=== PATIENT | male | born 1940 | race Caucasian/White ===

== ENCOUNTER 2018-01-09 16:44 | Inpatient (IN) | payer OTHER ==
[~2018-01-09] VITALS: Ht 157.5 cm; Wt 69.0 kg
[2018-01-09] MEDS ORDERED: ADENOSINE 6 MG/2 ML ONE ×2 (17:04→18:39)
[2018-01-09 17:26] LABS: BASOPHILS # (AUTO) 0.03 x10^3/uL (0-0.1); BASOPHILS % (AUTO) 1 % (0-1); EOSINOPHILS # (AUTO) 0.41 x10^3/uL (0-0.4); EOSINOPHILS % (AUTO) 7 % (1-7); LYMPHOCYTES # (AUTO) 2.61 x10^3/uL (1-3.4); LYMPHOCYTES % (AUTO) 41 % (22-44); MD NO; MEAN CORPUSCULAR HEMOGLOBIN 36.3 pg (27.5-34.5); MEAN CORPUSCULAR HGB CONC 34.1 g/dL (33.2-36.2); MEAN CORPUSCULAR VOLUME 106.5 fL (81-97); MEAN PLATELET VOLUME 8.8 fL (7.4-10.4); MONOCYTES % (AUTO) 9 % (2-9); NEUTROPHILS # (AUTO) 2.76 x10^3/uL (1.8-6.8); NEUTROPHILS % (AUTO) 43 % (42-75); PLATELET COUNT 192 x10^3/uL (130-400); RED BLOOD COUNT 3.57 x10^6/uL (4.38-5.82); RED CELL DISTRIBUTION WIDTH 14.3 % (9.4-14.8)
[2018-01-09 17:29] LABS: INTERNATIONAL NORMALIZED RATIO 1.04 (0.93-1.1); PROTHROMBIN TIME 10.7 Seconds (9.6-11.5)
[2018-01-09] MEDS ORDERED: PLEASE ENTER ALLERGIES MC SCH (17:30)
[2018-01-09] MEDS ORDERED: ADENOSINE 6 MG/2 ML IVPush ONE ×2 (17:30→19:30)
[2018-01-09] MEDS ORDERED: SODIUM CHLORIDE 0.9%, 500ML IVBOLUS ONE (17:30)
[2018-01-09] MEDS ORDERED: LEVO75TA5 PO (17:31)
[2018-01-09] MEDS ORDERED: METF500T4 PO (17:31)
[2018-01-09] MEDS ORDERED: SITA100T PO (17:31)
[2018-01-09] MEDS ORDERED: NATE120T2 PO (17:31)
[2018-01-09] MEDS ORDERED: SULF500T36 PO (17:31)
[2018-01-09] MEDS ORDERED: LOSA50TA6 PO (17:31)
[2018-01-09 17:39] LABS: ANION GAP 9 mmol/L (5-15); CALCIUM 8.9 mg/dL (8.5-10.1); CHLORIDE 108 mmol/L (98-107)
[2018-01-09 17:41] LABS: ALANINE AMINOTRANSFERASE 56 U/L (12-78); CREATININE 1.01 mg/dL (0.7-1.3)
[2018-01-09 17:46] LABS: ALKALINE PHOSPHATASE 114 U/L (45-117); BILIRUBIN,TOTAL 0.5 mg/dL (0.2-1.0); T4 (THYROXINE) 10.6 mcg/dL (4.5-12.1); TOTAL PROTEIN 9.3 g/dL (6.4-8.2); TROPONIN I < 0.015 ng/mL (0.000-0.045)
[2018-01-09] MEDS ORDERED: METOPROLOL TARTRATE 25 MG TABLET ONE (19:09)
[2018-01-09] MEDS ORDERED: METOPROLOL TARTRATE 50 MG TABLET PO ONE (19:30)
[2018-01-09 20:07] VITALS: BP 121/75
[2018-01-09] MEDS ORDERED: MAGNESIUM SULFATE PMX 2GM/50ML 50 ML IV ONE (21:00)
[2018-01-09] MEDS ORDERED: ONDANSETRON ODT 4 MG PO PRN (21:00)
[2018-01-09] MEDS ORDERED: TEMAZEPAM 15 MG CAPSULE PO PRN (21:00)
[2018-01-09] MEDS ORDERED: LABETALOL 5MG/ML, 20ML IVPush PRN (21:00)
[2018-01-09] MEDS: ENOXAPARIN 40 MG/0.4 ML SQ SCH (21:54)
[2018-01-09] MEDS: metFORMIN 500 MG TABLET PO SCH (21:54)
[2018-01-10 01:03] VITALS: BP 120/68
[2018-01-10 05:36] LABS: CHOLESTEROL, TOTAL 125 mg/dL (140-239); TRIGLYCERIDES 210 mg/dL (50-200); VLDL CHOLESTEROL 42 mg/dL (0-25)
[2018-01-10 05:37] LABS: CHOL/HDL RATIO 4.2; HDL CHOL % 24 % (26-37); HDL CHOLESTEROL (DIRECT) 30 mg/dL (40-60); LDL CHOLESTEROL,CALCULATED 53 mg/dL (54-169); LDL/HDL RATIO 1.8 (0.5-3.0)
[2018-01-10] MEDS: LEVOTHYROXINE 75 MCG TABLET PO SCH (06:25)
[2018-01-10] MEDS: INSULIN LISPRO 100 UNITS/ML, PEN SQ-INSULIN SCH ×4 (07:00→21:22)
[2018-01-10 08:16] VITALS: BP 119/71
[2018-01-10] MEDS ORDERED: NATEGLINIDE 120 MG TABLET PO SCH (09:00)
[2018-01-10] MEDS: metFORMIN 500 MG TABLET PO SCH (09:47)
[2018-01-10] MEDS: LOSARTAN 50MG TABLET PO SCH (09:47)
[2018-01-10 11:12] LABS: HEMOGLOBIN A1C 5.2 % (4.2-6.3)
[2018-01-10 11:19] LABS: FOLATE LEVEL > 20.0 ng/mL (3.1-17.5)
[2018-01-10] MEDS ORDERED: MAGNESIUM SULFATE PMX 2GM/50ML 50 ML IV ONE (12:00)
[2018-01-10 13:20] VITALS: BP 115/67
[2018-01-10 21:13] VITALS: BP 127/73
[2018-01-10] MEDS: ENOXAPARIN 40 MG/0.4 ML SQ SCH (21:22)
[2018-01-11 02:03] VITALS: BP 104/61
[2018-01-11 05:21] LABS: ANION GAP 7 mmol/L (5-15); CALCIUM 8.1 mg/dL (8.5-10.1); CHLORIDE 110 mmol/L (98-107)
[2018-01-11 05:29] LABS: CREATININE 0.81 mg/dL (0.7-1.3); TROPONIN I 0.306 ng/mL (0.000-0.045)
[2018-01-11] MEDS: LEVOTHYROXINE 75 MCG TABLET PO SCH (05:55)
[2018-01-11] MEDS: INSULIN LISPRO 100 UNITS/ML, PEN SQ-INSULIN SCH ×2 (07:00→13:20)
[2018-01-11 07:22] VITALS: BP 107/65
[2018-01-11] MEDS ORDERED: REGADENOSON 0.4 MG/5 ML SYRINGE ONE (08:25)
[2018-01-11 11:12] VITALS: BP 131/76
[2018-01-11] MEDS: LOSARTAN 50MG TABLET PO SCH (11:14)
[2018-01-11 13:15] VITALS: BP 131/74
== END 2018-01-11 17:00 | disposition home or self-care (01) | DRG 309 ==
LOC: ED 19:30 → EDIP 19:44 → 5SO 20:18 → DCLOUNGE 01-11 16:53
PROVIDERS: ADMIT Internal Medicine; ATTEND Internal Medicine
PROC: 5A2204Z Restoration of Cardiac Rhythm, Single (ICD-10-PCS; principal; 2018-01-09)
DX: I47.1 Supraventricular tachycardia (principal); K51.90 Ulcerative colitis, unspecified, without complications; D53.1 Other megaloblastic anemias, not elsewhere classified; I24.8 Other forms of acute ischemic heart disease; E83.42 Hypomagnesemia; E03.9 Hypothyroidism, unspecified; E11.9 Type 2 diabetes mellitus without complications; I10 Essential (primary) hypertension; Z79.84 Long term (current) use of oral hypoglycemic drugs; Z87.891 Personal history of nicotine dependence
CPT/HCPCS: 36415; 71045; 76700; 78452; 80048; 80053; 80061; 82607; 82746; 82962; 83036; 83690; 83735; 84436; 84443; 84484; 85025; 85610; 85730; 93005; 93017; 93306; 96374; 96376; J0153; J1650; J2785; A9502; C9898; J1815; J3475; J7040

== ENCOUNTER 2018-02-14 21:56 | Emergency (ER) | payer OTHER ==
[~2018-02-14] VITALS: Ht 157.5 cm; Wt 72.3 kg
[~2018-02-14 21:56] MED LIST: LEVO75TA5 PO; LOSA50TA6 PO; METF500T4 PO; NATE120T2 PO; SITA100T PO; SULF500T36 PO
[2018-02-14] MEDS ORDERED: SODIUM CHLORIDE FLUSH 10ML SYR IVF ONE (22:30)
[2018-02-14] MEDS ORDERED: NITROGLYCERIN SINGLE TAB 0.4 MG SL PRN (22:30)
[2018-02-14 22:50] LABS: BASOPHILS # (AUTO) 0.03 x10^3/uL (0-0.1); BASOPHILS % (AUTO) 1 % (0-1); EOSINOPHILS # (AUTO) 0.33 x10^3/uL (0-0.4); EOSINOPHILS % (AUTO) 6 % (1-7); LYMPHOCYTES # (AUTO) 1.91 x10^3/uL (1-3.4); LYMPHOCYTES % (AUTO) 33 % (22-44); MD NO; MEAN CORPUSCULAR HEMOGLOBIN 36.4 pg (27.5-34.5); MEAN CORPUSCULAR HGB CONC 34.1 g/dL (33.2-36.2); MEAN CORPUSCULAR VOLUME 106.6 fL (81-97); MEAN PLATELET VOLUME 8.6 fL (7.4-10.4); MONOCYTES % (AUTO) 9 % (2-9); NEUTROPHILS # (AUTO) 3.04 x10^3/uL (1.8-6.8); NEUTROPHILS % (AUTO) 52 % (42-75); PLATELET COUNT 189 x10^3/uL (130-400); RED BLOOD COUNT 3.46 x10^6/uL (4.38-5.82)
[2018-02-14 23:00] LABS: PROTHROMBIN TIME 10.4 Seconds (9.6-11.5)
[2018-02-14] MEDS ORDERED: NITROGLYCERIN SINGLE TAB 0.4 MG SL ONE (23:01)
[2018-02-14 23:03] LABS: ALANINE AMINOTRANSFERASE 55 U/L (12-78); ALBUMIN 3.7 g/dL (3.4-5.0); ANION GAP 10 mmol/L (5-15); CALCIUM 9.2 mg/dL (8.5-10.1); CHLORIDE 107 mmol/L (98-107); CREATININE 1.21 mg/dL (0.7-1.3)
[2018-02-14 23:07] LABS: ALKALINE PHOSPHATASE 116 U/L (45-117); BILIRUBIN,TOTAL 0.6 mg/dL (0.2-1.0); TOTAL PROTEIN 8.4 g/dL (6.4-8.2); TROPONIN I < 0.015 ng/mL (0.000-0.045)
[2018-02-15] MEDS ORDERED: SODIUM CHLORIDE 0.9% 1,000ML IVBOLUS ONE
[2018-02-15] MEDS ORDERED: OMNIPAQUE 350 MG/ML, 100ML BOTTLE ONE (00:19)
[2018-02-15 01:16] VITALS: BP 123/73
== END 2018-02-15 01:28 | disposition home or self-care (01) ==
LOC: ED 22:29
DX: R07.2 Precordial pain (principal); I10 Essential (primary) hypertension; E11.9 Type 2 diabetes mellitus without complications
CPT/HCPCS: 36415; 71045; 71275; 80053; 83690; 84484; 85025; 85610; 85730; 93005; 96360; 99285; J7030; Q9967

== ENCOUNTER → 2018-10-26 | Outpatient (CLI) | payer OTHER ==
[~2018-10-26] MED LIST changes: +LOSA50TA14 PO; -LOSA50TA6 PO; +METF500T17 PO; -METF500T4 PO
== END | disposition home or self-care (01) ==
LOC: CFH 09:58
DX: K74.60 Unspecified cirrhosis of liver (principal); R16.0 Hepatomegaly, not elsewhere classified; K76.0 Fatty (change of) liver, not elsewhere classified
CPT/HCPCS: 76700

== ENCOUNTER → 2018-11-30 | Outpatient (CLI) | payer MEDICARE ==
[~2018-11-30] MED LIST changes: +OMNIPAQUE 350 MG/ML, 100ML BOTTLE ONE
== END | disposition home or self-care (01) ==
LOC: CFH 11:30
DX: R16.0 Hepatomegaly, not elsewhere classified (principal); K44.9 Diaphragmatic hernia without obstruction or gangrene; K51.90 Ulcerative colitis, unspecified, without complications; R94.5 Abnormal results of liver function studies; R93.5 Abnormal findings on diagnostic imaging of other abdominal regions, including retroperitoneum
CPT/HCPCS: 74178; 82565; Q9967

== ENCOUNTER 2019-01-10 10:06 | Day surgery (SDC) | payer MEDICARE ==
[~2019-01-10] VITALS: Ht 157.5 cm; Wt 70.2 kg
[~2019-01-10 10:06] MED LIST changes: -OMNIPAQUE 350 MG/ML, 100ML BOTTLE ONE
[2019-01-10] MEDS ORDERED: SODIUM CHLORIDE 0.9% 1,000 ML IV SCH (10:32)
[2019-01-10 10:58] VITALS: BP 117/71
[2019-01-10 11:13] LABS: INTERNATIONAL NORMALIZED RATIO 1.02 (0.93-1.1); PROTHROMBIN TIME 10.7 Seconds (9.6-11.5)
[2019-01-10] MEDS ORDERED: FENTANYL PF 100 MCG/2ML ONE (11:35)
[2019-01-10] MEDS ORDERED: FLUMAZENIL 0.1 MG/1 ML, 5ML ONE (11:35)
[2019-01-10] MEDS ORDERED: NALOXONE 1 MG/ML, 2ML ONE (11:35)
[2019-01-10] MEDS ORDERED: MIDAZOLAM 1 MG/ML, 5ML ONE (11:35)
== END 2019-01-10 14:46 | disposition home or self-care (01) ==
LOC: OUT 10:06
PROVIDERS: ATTEND Surgery
DX: C22.7 Other specified carcinomas of liver (principal); K76.89 Other specified diseases of liver; K75.89 Other specified inflammatory liver diseases; K74.69 Other cirrhosis of liver
CPT/HCPCS: 47000; 77012; 82962; 85610; 88307; 88313; 88341; 88342; 99156; J2250; J3010; J7030; 99157; J2310

== ENCOUNTER → 2019-03-24 | Outpatient (CLI) | payer MEDICARE ==
[~2019-03-24] MED LIST changes: +OMNIPAQUE 350 MG/ML, 100ML BOTTLE ONE
== END | disposition home or self-care (01) ==
LOC: CFH 11:20
PROVIDERS: ATTEND Surgery
DX: C22.9 Malignant neoplasm of liver, not specified as primary or secondary (principal); R16.0 Hepatomegaly, not elsewhere classified; M47.816 Spondylosis without myelopathy or radiculopathy, lumbar region
CPT/HCPCS: 74170; 82565; Q9967

== ENCOUNTER → 2019-10-23 | Outpatient (CLI) | payer MEDICARE ==
[~2019-10-23] MED LIST changes: +ASPI-496 PO; +FOLIC ACID PO; +GADOTERATE 10 MMOL/20 ML VIAL ONE; +LEVO88TA4 PO; -OMNIPAQUE 350 MG/ML, 100ML BOTTLE ONE; +VITAMIN B12 PO
== END | disposition home or self-care (01) ==
LOC: CFH 11:43
PROVIDERS: ATTEND Surgery
DX: C22.0 Liver cell carcinoma (principal); R16.0 Hepatomegaly, not elsewhere classified; K74.60 Unspecified cirrhosis of liver
CPT/HCPCS: 74183; A9575

== ENCOUNTER 2020-04-17 13:13 | Outpatient (CLI) | payer MEDICARE ==
[~2020-04-17 13:13] MED LIST changes: -GADOTERATE 10 MMOL/20 ML VIAL ONE
[2020-04-17] MEDS ORDERED: GADOTERATE 7.5 MMOL/15 ML VIAL ONE (14:35)
== END 2020-04-17 23:59 | disposition home or self-care (01) ==
LOC: CFH 13:13
PROVIDERS: ATTEND Registered Nurse
DX: C22.0 Liver cell carcinoma (principal); R16.0 Hepatomegaly, not elsewhere classified
CPT/HCPCS: 74183; A9575

== ENCOUNTER 2020-06-19 13:25 | Outpatient (CLI) | payer MEDICARE ==
[2020-06-19] MEDS ORDERED: GADOTERATE 10 MMOL/20 ML VIAL ONE (13:45)
== END 2020-06-19 23:59 | disposition home or self-care (01) ==
LOC: CFH 13:25
PROVIDERS: ATTEND Surgery
DX: C22.0 Liver cell carcinoma (principal); Z92.21 Personal history of antineoplastic chemotherapy
CPT/HCPCS: 74183; A9575

== ENCOUNTER 2020-07-09 12:56 | Outpatient (CLI) | payer MEDICARE | END 2020-07-09 23:59 | disposition home or self-care (01) | LOC: RAD 12:56 | PROVIDERS: ATTEND Surgery | DX: Z02.9 Encounter for administrative examinations, unspecified (principal) | CPT/HCPCS: 75894 ==

== ENCOUNTER → 2020-09-18 | Outpatient (CLI) | payer MEDICARE ==
[~2020-09-18] MED LIST changes: +GADOTERATE 7.5 MMOL/15 ML VIAL ONE
== END | disposition home or self-care (01) ==
LOC: CFH 12:56
PROVIDERS: ATTEND Surgery
DX: C22.0 Liver cell carcinoma (principal); R16.0 Hepatomegaly, not elsewhere classified
CPT/HCPCS: 74183; A9575

== ENCOUNTER → 2021-04-09 | Outpatient (CLI) | payer MEDICARE | END | disposition home or self-care (01) | LOC: CFH 12:55 | PROVIDERS: ATTEND Surgery | DX: C22.0 Liver cell carcinoma (principal); K76.89 Other specified diseases of liver | CPT/HCPCS: 74183; A9575 ==

== ENCOUNTER 2021-06-10 10:30 | Outpatient (CLI) | payer MEDICARE ==
[~2021-06-10 10:30] MED LIST changes: -GADOTERATE 7.5 MMOL/15 ML VIAL ONE
== END 2021-06-10 23:59 | disposition home or self-care (01) ==
LOC: CFH 10:30
PROVIDERS: ATTEND Internal Medicine
DX: K51.90 Ulcerative colitis, unspecified, without complications (principal)
CPT/HCPCS: 77080